=== PATIENT | female | born 1995 | race Asian ===

== ENCOUNTER 2019-03-17 19:27 | Emergency (ER) | payer SELFPAY ==
[~2019-03-17] VITALS: Ht 165.1 cm; Wt 53.0 kg
[2019-03-17] MEDS ORDERED: SODIUM CHLORIDE 0.9% 1,000 ML IV ONE (21:52)
[2019-03-17 22:07] LABS: BASOPHILS % 0.1 % (0.0-2.0); HEMATOCRIT. 43.9 % (36.0-48.0); HEMOGLOBIN. 14.6 g/dL (12.0-16.0); MEAN CORPUSCULAR HEMOGLOBIN 30.8 pg (28.0-32.0); MEAN CORPUSCULAR VOLUME 92.5 fL (81.0-99.0); MEAN PLATELET VOLUME 7.6 fl (7.4-10.4); MONOCYTES % 4.9 % (2.0-8.0); PLATELET 204 x1000/uL (130-400); RED BLOOD CELL COUNT 4.74 mill/uL (4.2-5.4)
[2019-03-17 22:11] LABS: CLARITY URINE CLEAR (CLEAR); COLOR URINE DARK YELLOW (YELLOW); KETONES URINE 3+ (NEGATIVE); LEUKOCYTE ESTERASE URINE NEGATIVE (NEGATIVE); NITRITE URINE NEGATIVE (NEGATIVE); OCCULT BLOOD URINE 3+ (NEGATIVE); PH URINE 6.5 (4.5-8.0); PROTEIN URINE 2+ (NEGATIVE); SPECIFIC GRAVITY URINE 1.028 (1.005-1.030); UROBILINOGEN URINE 0.2 E.U./dL (0.2-1.0)
[2019-03-17 22:12] LABS: CHLORIDE 104 mEq/L (98-107)
[2019-03-17 22:18] LABS: HCG SCREEN NEGATIVE
[2019-03-17 23:50] VITALS: BP 114/72
== END 2019-03-17 23:55 | disposition home or self-care (01) ==
LOC: ER 19:27
DX: R11.2 Nausea with vomiting, unspecified (principal); E86.0 Dehydration; R19.7 Diarrhea, unspecified; R10.30 Lower abdominal pain, unspecified; H53.8 Other visual disturbances; R06.02 Shortness of breath; R68.83 Chills (without fever)
CPT/HCPCS: 36415; 80053; 81003; 83690; 84703; 85025; 96360; 99283; J7030; Z7610